=== PATIENT | female | born 1950 | race Caucasian/White ===

== ENCOUNTER 2021-09-28 17:27 | Emergency (ER) | payer MEDICARE ==
--- NOTE | 2021-09-28 18:08 | ED ---
General Adult HPI - General Chief complaint: Fever Stated complaint: Weakness Time Seen by Provider: 09/28/21 17:54 Source: patient, family, RN notes reviewed Mode of arrival: wheelchair Limitations: no limitations - History of Present Illness Initial comments: Patient is 71-year-old female presents to the emergency room with complaints of weakness, fevers and diarrhea ongoing since Thursday (4 days ago); she went to urgent care on who tested her for color to influenza and advised her that the symptoms were negative and she likely had a viral illness and was sent home. Unfortunately she has continued to get weaker fevers have persisted and her daughter notes that she has become more to get neck and occasionally lethargic. She has been taking her blood pressure and diabetic medications as prescribed and reports that her blood sugar a few hours ago was 250. She has not taken any medication for fever since yesterday when she took Tylenol. She denies any abdominal pain, nausea of vomiting, chest pain or shortness of breath. She is supposed to take Spiriva for her COPD purports missing several doses as she often develops thrush when she takes the medication. She denies a cough. She denies any known exposure to COVID or in fluenza. She denies any other complaints or concerns at this time. - Related Data Previous Rx's Medication Instructions Recorded Fluconazole [Diflucan] 150 mg PO ONCE 3 Days #2 tab 09/28/21 Levofloxacin [Levaquin] 500 mg PO DAILY 7 Days #7 tab 09/28/21 Allergies Allergy/AdvReac Type Severity Reaction Status Date / Time No Known Allergies Allergy Verified 09/28/21 17:54 Review of Systems ROS Statement: Those systems with pertinent positive or pertinent negative responses have been documented in the HPI. ROS Other: All systems not noted in ROS Statement are negative. Past Medical History Past Medical History: COPD, Diabetes Mellitus, Hypertension Additional Past Medical History / Comment(s): UTI, GERD Past Surgical History: Section, Cholecystectomy Past Psychological History: No Psychological Hx Reported Smoking Status: Former smoker Past Alcohol Use History: Rare Past Drug Use History: None Reported General Exam Limitations: no limitations General appearance: alert, in no apparent distress Head exam: Present: atraumatic, normocephalic, normal inspection Eye exam: Present: normal appearance ENT exam: Present: normal exam, mucous membranes moist Neck exam: Present: normal inspection Respiratory exam: Present: decreased breath sounds, other (shallow breathing with mild tachypnea). Absent: respiratory distress, wheezes, rales, rhonchi, c hest wall tenderness Cardiovascular Exam: Present: regular rate, normal rhythm, normal heart sounds. Absent: systolic murmur, diastolic murmur, rubs, gallop, clicks GI/Abdominal exam: Present: soft, normal bowel sounds, other (Rounded). Absent: tenderness Extremities exam: Present: normal inspection. Absent: pedal edema, joint swelling Back exam: Present: normal inspection Neurological exam: Present: alert, oriented X3, CN II-XII intact Psychiatric exam: Present: normal affect, normal mood Skin exam: Present: warm, dry, intact, normal color. Absent: rash Course Vital Signs 09/28/21 09/28/21 17:47 20:08 Temperature 102.2 F H 97.8 F Pulse Rate 109 H 85 Respiratory 18 18 Rate Blood Pressure 136/63 122/65 O2 Sat by Pulse 93 L 95 Oximetry Medical Decision Making - Medical Decision Making Due to persistent fever lethargy and generalized malaise up for sepsis. Will repeat COVID and influenza screening along with CBC, lactic acid, CMP, blood cultures and urinalysis. Will check EKG and chest x-ray as well. Will start on IV fluid bolus along with 1 g of Tylenol at this time. Lethargy and fogginess improved with Tylenol and IV fluids. Chest x-ray consistent for right upper lobe pneumonia and urine consistent with urinary tract infection. No evidence of bacteremia or sepsis on labs at this time. We'll give 1 g of IV Rocephin and repeat vitals. If tolerates antibiotic well and improved vital signs will plan for discharge home on antibiotic with dual coverage for pneumonia and UTI likely Levaquin. She is requesting medication for yeast infection as she typically develops one on antibiotics will give Diflucan. Vital signs normalized with IV fluids and Tylenol. Patient would like to be discharged home. Return parameters given. Advised if any recurrence of fever not responsive to antipyretics or any increase in lethargy or weakness to return to the emergency room immediately. - Lab Data Result diagrams: 09/28/21 18:28 09/28/21 18:28 Lab Results 09/28/21 09/28/21 09/28/21 Range/Units 18:28 18:28 18:28 WBC 20.3 H (3.8-10.6) k/uL RBC 3.94 (3.80-5.40) m/uL Hgb 11.0 L (11.4-16.0) gm/dL Hct 33.5 L (34.0-46.0) % MCV 85.1 (80.0-100.0) fL MCH 27.8 (25.0-35.0) pg MCHC 32.7 (31.0-37.0) g/dL RDW 14.2 (11.5-15.5) % Plt Count 232 (150-450) k/uL MPV 9.1 Neutrophils % 86 % Lymphocytes % 4 % Monocytes % 7 % Eosinophils % 0 % Basophils % 1 % Neutrophils # 17.4 H (1.3-7.7) k/uL Lymphocytes # 0.8 L (1.0-4.8) k/uL Monocytes # 1.5 H (0-1.0) k/uL Eosinophils # 0.0 (0-0.7) k/uL Basophils # 0.1 (0-0.2) k/uL Sodium 128 L (137-145) mmol/L Potassium 4.0 (3.5-5.1) mmol/L Chloride 94 L (98-107) mmol/L Carbon Dioxide 22 (22-30) mmol/L Anion Gap 12 mmol/L BUN 17 (7-17) mg/dL Creatinine 0.90 (0.52-1.04) mg/dL Est GFR (CKD-EPI)AfAm 74 (>60 ml/min/1.73 sqM) Est GFR (CKD-EPI)NonAf 64 (>60 ml/min/1.73 sqM) Glucose 265 H (74-99) mg/dL Plasma Lactic Acid Nico (0.7-2.0) mmol/L Calcium 9.4 (8.4-10.2) mg/dL Total Bilirubin 0.9 (0.2-1.3) mg/dL AST 29 (14-36) U/L ALT 24 (4-34) U/L Alkaline Phosphatase 89 (38-126) U/L Total Protein 6.6 (6.3-8.2) g/dL Albumin 3.7 (3.5-5.0) g/dL Urine Color Yellow Urine Appearance Cloudy H (Clear) Urine pH 6.0 (5.0-8.0) Ur Specific [place] 1.023 (1.001-1.035) Urine Protein 2+ H (Negative) Urine Glucose (UA) 3+ H (Negative) Urine Ketones Negative (Negative) Urine Blood Trace H (Negative) Urine Nitrite Negative (Negative) Urine Bilirubin Negative (Negative) Urine Urobilinogen 2.0 (<2.0) mg/dL Ur Leukocyte Esterase Moderate H (Negative) Urine RBC 2 (0-5) /hpf Urine WBC 49 H (0-5) /hpf Ur Squamous Epith Cells 9 H (0-4) /hpf Urine Mucus Rare H (None) /hpf Coronavirus (PCR) (Not Detectd) Influenza Type A RNA (Not Detectd) Influenza Type B (PCR) (Not Detectd) 09/28/21 09/28/21 09/28/21 Range/Units 18:28 18:43 18:43 WBC (3.8-10.6) k/uL RBC (3.80-5.40) m/uL Hgb (11.4-16.0) gm/dL Hct (34.0-46.0) % MCV (80.0-100.0) fL MCH (25.0-35.0) pg MCHC (31.0-37.0) g/dL RDW (11.5-15.5) % Plt Count (150-450) k/uL MPV Neutrophils % % Lymphocytes % % Monocytes % % Eosinophils % % Basophils % % Neutrophils # (1.3-7.7) k/uL Lymphocytes # (1.0-4.8) k/uL Monocytes # (0-1.0) k/uL Eosinophils # (0-0.7) k/uL Basophils # (0-0.2) k/uL Sodium (137-145) mmol/L Potassium (3.5-5.1) mmol/L Chloride (98-107) mmol/L Carbon Dioxide (22-30) mmol/L Anion Gap mmol/L BUN (7-17) mg/dL Creatinine (0.52-1.04) mg/dL Est GFR (CKD-EPI)AfAm (>60 ml/min/1.73 sqM) Est GFR (CKD-EPI)NonAf (>60 ml/min/1.73 sqM) Glucose (74-99) mg/dL Plasma Lactic Acid Nico 1.8 (0.7-2.0) mmol/L Calcium (8.4-10.2) mg/dL Total Bilirubin (0.2-1.3) mg/dL AST (14-36) U/L ALT (4-34) U/L Alkaline Phosphatase (38-126) U/L Total Protein (6.3-8.2) g/dL Albumin (3.5-5.0) g/dL Urine Color Urine Appearance (Clear) Urine pH (5.0-8.0) Ur Specific [place] (1.001-1.035) Urine Protein (Negative) Urine Glucose (UA) (Negative) Urine Ketones (Negative) Urine Blood (Negative) Urine Nitrite (Negative) Urine Bilirubin (Negative) Urine Urobilinogen (<2.0) mg/dL Ur Leukocyte Esterase (Negative) Urine RBC (0-5) /hpf Urine WBC (0-5) /hpf Ur Squamous Epith Cells (0-4) /hpf Urine Mucus (None) /hpf Coronavirus (PCR) Not Detected (Not Detectd) Influenza Type A RNA Not Detected (Not Detectd) Influenza Type B (PCR) Not Detected (Not Detectd) - EKG Data EKG Comments: Sinus rhythm. Ventricular rate 86 bpm, CA interval 140 ms, QRS duration 98 ms, QT/QTC 360/411 ms PRT axis sees 60, 42, 31 When compared to previous EKG there are: previous EKG unavailable - Radiology Data Radiology results: report reviewed, image reviewed Chest x-ray two-view shows that there is a wedge-shaped 6 cm area of infiltrate on the lateral right upper lobe at the lung toribio are clear. Right upper lobe pneumonia. Normal heart. Disposition Clinical Impression: Pneumonia, Urinary tract infection Disposition: HOME SELF-CARE Condition: Stable Instructions (If sedation given, give patient instructions): Fever in Adults (ED), Community Acquired Pneumonia (ED), Urinary Tract Infection in Women (ED) Additional Instructions: Complete antibiotic as prescribed. Please utilize per Verón[place] inhaler as presc ribed. If any persistent temperatures lethargy, weakness, or any worsening of shortness of breath/cough please return to the emergency room. Utilize Diflucan if needed for yeast infection. Please return to the Emergency Department if symptoms worsen or any other concerns. Prescriptions: Fluconazole [Diflucan] 150 mg PO ONCE 3 Days #2 tab Levofloxacin [Levaquin] 500 mg PO DAILY 7 Days #7 tab Is patient prescribed a controlled substance at d/c from ED?: No Referrals: Nonstaff,Physician [Primary Care Provider] - 1-2 days (Shaunna Sorenson DO Address: [address] [place] [address] ) Time of Disposition: 20:36
[2021-09-28] MEDS ORDERED: ACETAMINOPHEN TAB 500 MG TAB PO STA (18:13)
[2021-09-28] MEDS ORDERED: SODIUM CHLORIDE 0.9% 1,000 ML IV STA (18:28)
[2021-09-28 18:52] LABS: Basophils # (A) 0.1 k/uL (0-0.2); Basophils % (A) 1 %; Eosinophils % (A) 0 %; HCT 33.5 % (34.0-46.0); Lymphocytes # (A) 0.8 k/uL (1.0-4.8); Lymphocytes % (A) 4 %; MCH 27.8 pg (25.0-35.0); MCHC 32.7 g/dL (31.0-37.0); MCV 85.1 fL (80.0-100.0); Mean Platelet Volume 9.1; Monocytes # (A) 1.5 k/uL (0-1.0); Monocytes % (A) 7 %; Neutrophils # (A) 17.4 k/uL (1.3-7.7); Neutrophils % (A) 86 %; Platelet Count 232 k/uL (150-450); RBC 3.94 m/uL (3.80-5.40); RDW 14.2 % (11.5-15.5); WBC 20.3 k/uL (3.8-10.6)
--- NOTE | 2021-09-28 19:00 | XR ---
EXAMINATION TYPE: XR chest 2V DATE OF EXAM: 09/28/2021 COMPARISON: NONE HISTORY: Weakness TECHNIQUE: 2 views FINDINGS: There is wedge-shaped 6 cm area of infiltrate in the lateral right upper lobe. The other steven ng toribio are clear. There are no hilar masses. Heart size is normal. No heart failure. No pleural ef fusion. Bony thorax is intact. IMPRESSION: Right upper lobe pneumonia. Normal heart.
[2021-09-28 19:08] LABS: Albumin 3.7 g/dL (3.5-5.0); Calcium 9.4 mg/dL (8.4-10.2); Total Bilirubin 0.9 mg/dL (0.2-1.3); Total Protein 6.6 g/dL (6.3-8.2)
[2021-09-28 19:13] LABS: Appearance,Urine Cloudy (Clear); Bilirubin,Urine Negative (Negative); Blood,Urine Trace (Negative); Color,Urine Yellow; Glucose,Urine (UA) 3+ (Negative); Ketones,Urine Negative (Negative); Leukocyte Esterase,Urine Moderate (Negative); Mucus,Urine Rare /hpf; Nitrite,Urine Negative (Negative); Protein,Urine 2+ (Negative); RBC,Urine 2 /hpf (0-5); Specific Gravity,Urine 1.023 (1.001-1.035); Squamous Epithelial Cell,Urine 9 /hpf (0-4); WBC,Urine 49 /hpf (0-5)
[2021-09-28] MEDS ORDERED: cefTRIAXone IN SWFI 1,000 MG/10 ML SYRINGE IVP STA (19:45)
[2021-09-28 21:16] VITALS: BP 127/78; PULSE 68; RESP 20; TEMP 98.2
== END 2021-09-28 21:17 | disposition home or self-care (01) ==
LOC: EC 17:27
DX: J18.9 Pneumonia, unspecified organism (principal); J44.9 Chronic obstructive pulmonary disease, unspecified; E11.9 Type 2 diabetes mellitus without complications; I10 Essential (primary) hypertension; Z87.891 Personal history of nicotine dependence; Z20.822 Contact with and (suspected) exposure to COVID-19
CPT/HCPCS: 36415; 80053; 83605; 85025; 81001; 87040; 87086; 87502; 87635; 71046; 99285; 96374; 96361; J0696; 87077; 87186